=== PATIENT | male | born 1960 | race Caucasian/White ===

== ENCOUNTER 2023-05-14 09:07 | Outpatient (REF) | payer BC, SELFPAY ==
[2023-05-14 16:15] LABS: HCT 41.3 % (40.0-50.0); HGB 14.3 g/dL (13.5-17.5); MCH 30.7 pg (27.0-33.0); MCHC 34.6 % (32.0-36.0); MCV 89 fL (80-95); MPV 10.5 fL (8.0-11.0); Platelet Count 328 10^3/uL (130-400); RBC 4.66 10^6/uL (4.36-5.78); RDW 12.3 % (11.8-14.1); RDW-SD 39.8 fL; WBC 9.32 10^3/uL (4.4-10.8)
[2023-05-14 17:18] LABS: BUN 9 mg/dL (7-18); CREATININE 0.8 mg/dL (0.70-1.30); Calculated LDL 168 mg/dL (<100); Chloride 101 mmol/L (98-107); Cholesterol 227 mg/dL (<200); Estimated GFR 100.06 (mL/min/1.73m2); Glucose 199 mg/dL (74-106); HDL Cholesterol 37 mg/dL (40-60); Potassium 4.6 mmol/L (3.5-5.1); Sodium 138 mmol/L (136-145); Triglyceride 114 mg/dL (<150)
[2023-05-14 17:28] LABS: Uric Acid 4.5 mg/dL (3.5-7.2)
[2023-05-14 22:29] LABS: PSA, Screening 1.9 ng/mL (<=4.5)
== END 2023-05-14 09:08 | disposition home or self-care (01) ==
LOC: NCHCN 09:07
PROVIDERS: PCP Physician Assistant; Visit Provider Physician Assistant
DX: M10.9 Gout, unspecified (principal); I10 Essential (primary) hypertension; G60.9 Hereditary and idiopathic neuropathy, unspecified; Z12.5 Encounter for screening for malignant neoplasm of prostate; R73.09 Other abnormal glucose; G47.30 Sleep apnea, unspecified; R79.89 Other specified abnormal findings of blood chemistry
CPT/HCPCS: 80048; 80061; 84153; 85027; 83036; 84550